=== PATIENT | female | born 1960 | race Caucasian/White ===

== ENCOUNTER 2017-01-28 06:33 | Day surgery (SDC) | payer OTHER ==
[~2017-01-28 06:33] MED LIST: ALEVE220 M4 PO; ALLEGRA ALLERG180 M1 PO; AMBIEN10 M1 PO; CYCLOBENZAPRINE10 M1 PO; METAXALONE800 M1 PO; NASACORT10.8 M1; SERTRALINE HCL50 M4 PO; SYNTHROID50 MC1 PO; WELLBUTRIN XL150 M1 PO; XANAX0.25 M1 PO; ZOCOR20 M1 PO
[2017-01-30] MEDS ORDERED: PERCOCET 5-3251 EACH PO (08:39)
--- NOTE | 2017-01-30 10:39 | NUR ---
[facility] DISCHARGE NOTE-DID VIRTUAL NURSE TEACHING AT 1000 IN THE ROOM VAUGHN WAS DOWN. REVIEWED ALL THE DISCHARGE INSTRUCTIONS,MEDICATIONS,FOLLOWUP APPTS, ETC WITH PATIENT. SHE DEMONSTRATED DRAIN CARE WITH THE BEDSIDE NURSE THIS MORNING AND FEELS COMFORTABLE WITH IT. SHE AND HER SPOUSE HAD NO QUESTIONS OR CONCERNS. SHE WAS ABLE TO ANSWER QUESTIONS DURING TEACHBACK. DRAIN SUPPLIES AND CAMISOLE ARE BEING SENT HOME WITH PATIENT
== END 2017-01-30 10:45 ==
LOC: SRG 06:33 → SHSC 06:36 → ORW 11:17 → PACU 14:02 → 5WD 15:20
PROC: 0HUV0JZ Supplement Bilateral Breast with Synthetic Substitute, Open Approach (ICD-10-PCS; principal; 2017-01-28)
PROC: 0HTV0ZZ Resection of Bilateral Breast, Open Approach (ICD-10-PCS; 2017-01-28)
PROC: 07B60ZX Excision of Left Axillary Lymphatic, Open Approach, Diagnostic (ICD-10-PCS; 2017-01-28)
PROC: 07B50ZX Excision of Right Axillary Lymphatic, Open Approach, Diagnostic (ICD-10-PCS; 2017-01-28)
DX: D05.11 Intraductal carcinoma in situ of right breast (principal); N60.12 Diffuse cystic mastopathy of left breast; I25.10 Atherosclerotic heart disease of native coronary artery without angina pectoris; E78.5 Hyperlipidemia, unspecified; M79.7 Fibromyalgia; E03.9 Hypothyroidism, unspecified; F41.9 Anxiety disorder, unspecified; F32.9 Major depressive disorder, single episode, unspecified; K21.9 Gastro-esophageal reflux disease without esophagitis; Z79.899 Other long term (current) drug therapy; Z88.0 Allergy status to penicillin; Z90.49 Acquired absence of other specified parts of digestive tract; Z90.710 Acquired absence of both cervix and uterus; Z90.89 Acquired absence of other organs; Z98.890 Other specified postprocedural states
CPT/HCPCS: A9520; C1713; C1781; C1789; J0690; J2250; J2270; J2405; J2795; J3010; J3370

== ENCOUNTER 2017-02-03 22:45 | Day surgery (SDC) | payer OTHER ==
[~2017-02-03 22:45] MED LIST changes: +PERCOCET 5-3251 EACH PO
[2017-02-03] MEDS ORDERED: ADVIL200 M3 PO (22:46)
[2017-02-03] MEDS ORDERED: TYLENOL EXTRA500 M1 PO (22:47)
== END 2017-02-04 03:40 ==
LOC: EDMED 22:45 → SRG 22:58 → PACU 02-04 00:32 → CAR1 02-04 01:05
PROC: 0H9T0ZZ Drainage of Right Breast, Open Approach (ICD-10-PCS; principal; 2017-02-04)
DX: N64.89 Other specified disorders of breast (principal); J30.2 Other seasonal allergic rhinitis; R42 Dizziness and giddiness; Z90.13 Acquired absence of bilateral breasts and nipples; Z98.890 Other specified postprocedural states; Z90.710 Acquired absence of both cervix and uterus; Z90.49 Acquired absence of other specified parts of digestive tract; Z79.899 Other long term (current) drug therapy
CPT/HCPCS: J0690